=== PATIENT | male | born 1945 | race Caucasian/White ===

== ENCOUNTER 2021-09-12 08:40 | Emergency (ER) | payer MEDICARE ==
[~2021-09-12] VITALS: Ht 177.8 cm; Wt 100.0 kg
[2021-09-12] MEDS ORDERED: OXYMETAZOLINE 0.05% NASAL SPRAY 30ML BOTTLE. NS ONE (09:00)
--- NOTE | 2021-09-12 10:07 | PHYS DOC ---
Past Medical History Past Medical History: CAD, Hypertension Past Surgical History: No Surgical History, Coronary Bypass Surgery, Other Additional Past Surgical Histo: 2 vessel cardiac bypass 1995 Smoking Status: Never Smoker Alcohol Use: None Drug Use: None Social History Narrative: Unremarkable social history General Adult EDM: Chief Complaint: NOSEBLEED HPI: HPI: Patient is a 76-year-old male presenting to the emergency department via EMS after he called 911 for a nosebleed that he was unable to control at home. P lynda reports that his nosebleed started at 0730 hrs. patient reports that there is heavy flow bleeding from the right nare. Patient denies currently taking any blood thinning medications. Patient reports that he does not feel dizzy nor lightheaded. Patient reports that as a child he had a history of daily nosebleeds however he has not had 1 recently and this nosebleed is signi ficantly worse than any he has had in his past. He reports that he did swallow a small amount of blood however he denies any current nausea and denies any history of vomiting. Relevant past medical history significant for hypertension, currently in the department he is hypertensive as documented within this report. Patient is sitting upright in bed on his own, protecting his airway appropriately, pinching his nasal bridge. Review of Systems: Review of Systems: Constitutional: Denies fever or chills Eyes: Denies redness or eye pain HENT: Reports nasal bleeding, denies sore throat. Respiratory: Denies cough or shortness of breath Cardiovascular: Denies chest pain or palpitations GI: Denies abdominal pain, nausea, or vomiting : Denies dysuria or hematuria Musculoskeletal: Denies back pain or joint pain Integument: Denies rash or skin lesions Neurologic: Denies headache, focal weakness or sensory changes Complete systems were reviewed and found to be within normal limits, except as documented in this note. Heart Score: C/O Chest Pain: N/A Current Medications: Current Medications Medications (Trade) Dose Ordered Sig/Audra Start Time Stop Time Status Last Admin Dose Admin Oxymetazoline HCl (Afrin) 2 spray 1X ONCE 09/12/21 09:00 09/12/21 09:01 DC 09/12/21 08:57 2 SPRAY Allergies: Allergies: Allergies Coded Allergies Type Severity Reaction Last Updated Verified simvastatin Allergy Severe 09/12/21 Yes Physical Exam: PE: Constitutional: Well developed, well nourished, no acute distress, non-toxic appearance HENT: Normocephalic, atraumatic, dried blood around patient's naris and lips, blood clots bilateral naris, posterior oropharynx tinged to red, no dripping of blood actively into posterior pharynx Eyes: PERRL, conjunctiva normal, no discharge Neck: Normal range of motion, no tenderness, supple Lungs & Thorax: No respiratory distress, equal chest rise and fall Abdomen: Soft, no tenderness Skin: Warm, dry, no erythema, no rash Back: No tenderness, no CVA tenderness Extremities: No tenderness, ROM intact, no edema Neurologic: Alert and oriented X 3, normal motor function, normal sensory function, no focal deficits noted Psychologic: Affect normal, judgment normal Current Patient Data: Vital Signs: Vital Signs Date Time Temp Pulse Resp B/P (MAP) Pulse Ox O2 Delivery O2 Flow Rate FiO2 09/12/21 08:47 98.4 73 16 167/80 (109) Room Air 98.4 EKG: EKG: [] Radiology/Procedures: Radiology/Procedures: [] Course & Med Decision Making: Course & Med Decision Making 76-year-old male presents to emergency department via EMS due to uncontrollable nosebleeding at home. Upon arrival to the department patient was pinching his nose, sitting upright and appropriately protecting his airway, no active hemorrhage. Patient denies being on blood thinning medications, reports history of nosebleeds as a child, no recent history of nosebleeds. This nosebleed he reports is significantly more severe than prior episodes. Patient does have a history of hypertension, he is hypertensive in the department as documented within this report. Nasal exam was conducted as documented within procedure note of this report. Following exam due to patient presentation a Rhino Rocket was placed. Hemorrhage was adequately controlled. Patient will continue to be monitored in the emergency department to ensure continued adequate hemostasis. Plan to follow-up with outpatient ENT. Patient is mildly hypertensive, reports he has not taken his blood pressure medications today. Was given instructions to take his normal daily blood pressure medications when he gets home. Patient also reports that he needs a taxi voucher to get back to his car. 1 will be provided. Theresa Disclaimer: Theresa Disclaimer: This electronic medical record was generated, in whole or in part, using a voice recognition dictation system. Additional Procedures Progress Epistaxis Management Verbal consent obtained. Time out performed. Hand hygiene utilized. Patient blew his nose and was able to clear nose of clots. Oxymetazoline spray was applied bilaterally x2. An external compression device was applied. Patient's nose reevaluated after 15 minutes of compression. Steady bleeding began from right nare. Unable to visualize specific location of hemorrhage, elected to place 4.5 cm Rhino Rocket into the right nare. Rhino Rocket was soaked in sterile water, inserted into right naris to appropriate depth, balloon was inflated. Hemorrhage was controlled with placement of nose packing. Patient tolerated procedure well and without difficulty. We will continue to monitor patient in the emergency department to ensure adequate hemostasis. Departure Departure Impression: Primary Impression: Epistaxis Disposition: 01 HOME / SELF CARE / HOMELESS Condition: STABLE Referrals: MARIANN FOLEY MD Patient Instructions: Nosebleed, [id number] Additional Instructions: Please maintain nasal tampon until seen by your family physician and/or ENT for removal. Utilize bedside humidifier especially when sleeping at night. Please make sure to take your blood pressure medication as directed. WHITLEY BERG DO Sep 12, 2021 10:07
[2021-09-12 10:25] VITALS: BP 172/82
== END 2021-09-12 10:47 | disposition home or self-care (01) ==
LOC: ER 08:40
DX: R04.0 Epistaxis (principal); I10 Essential (primary) hypertension; I25.10 Atherosclerotic heart disease of native coronary artery without angina pectoris; Z95.1 Presence of aortocoronary bypass graft; Z88.8 Allergy status to other drugs, medicaments and biological substances
CPT/HCPCS: 30901; 99284